=== PATIENT | female | born 1945 | race Caucasian/White ===

== ENCOUNTER 2022-05-03 12:29 | Inpatient (IN) ==
[2022-05-03] MEDS ORDERED: Nitroglycerin 0.4 MG TAB.SUBL SL PRN (18:43)
[2022-05-03] MEDS ORDERED: Ciprofloxacin HCL Soln 5 ML BOTTLE RIGHT EYE SCH (20:00)
[2022-05-03] MEDS: Aspirin Enteric Coated 81 MG Tablet PO SCH (20:37)
[2022-05-03] MEDS: Gabapentin 300 MG CAPSULE PO SCH (20:37)
[2022-05-03] MEDS: QUEtiapine Fumarate 25 MG TABLET PO SCH (20:38)
[2022-05-03] MEDS: Ciprofloxacin HCL Soln 5 ML BOTTLE BOTH EYES SCH (23:14)
[2022-05-03] MEDS: BuPROPion SR (12 HR) 100 MG TABLET PO SCH (23:14)
[2022-05-04] MEDS: Ciprofloxacin HCL Soln 5 ML BOTTLE BOTH EYES SCH ×5 (04:54→19:49)
[2022-05-04] MEDS: *HR* Enoxaparin 40 MG/0.4 ML SYRINGE SQ SCH (05:09)
[2022-05-04 05:48] LABS: Hematocrit 35.6 % (35.3-44.9); Mean Corpuscular HGB Conc 33.7 g/dL (31.6-35.5); Mean Corpuscular Hemoglobin 30.5 pg (28.0-33.3); Mean Corpuscular Volume 90.6 fL (83.0-100.0); Mean Platelet Volume 9.5 fL (9.4-12.4); Platelet Count 186 K/mcL (140-400); Red Blood Count 3.93 M/mcL (3.82-4.97); Red Cell Distribution Width 12.8 % (11.5-14.5); White Blood Count 6.7 K/mcL (4.3-11.1)
[2022-05-04 06:17] LABS: Alanine Aminotransferase 11 Units/L (7-52); Albumin 3.5 g/dL (3.5-5.7); Albumin/Globulin Ratio 1.3 (1.1-2.2); Alkaline Phosphatase 63 Units/L (34-104); Aspartate Amino Transferase 15 Units/L (13-39); BUN/Creatinine Ratio 12 (6-26); Bilirubin,Total 0.5 mg/dL (0.3-1.0); Blood Urea Nitrogen 9 mg/dL (8-23); Calcium 9.3 mg/dL (8.6-10.3); Carbon Dioxide 29 mEq/L (23-29); Chloride 104 mEq/L (98-107); Globulin 2.8 g/dL (2.4-3.5); Glucose 161 mg/dL (70-105); Magnesium 1.4 mg/dL (1.6-2.6); Osmolality,Calculated 292 (280-300); Potassium 3.7 mEq/L (3.5-5.1); Sodium 140 mEq/L (136-145); Total Protein 6.3 g/dL (6.4-8.9); eGFR For African Americans > 60 (> 60); eGFR For Non-African Americans > 60 (> 60)
[2022-05-04] MEDS: GlipiZIDE 5 MG TABLET PO SCH (08:51)
[2022-05-04] MEDS: amLODIPine 5 MG TABLET PO SCH (08:52)
[2022-05-04] MEDS: Aspirin Enteric Coated 81 MG Tablet PO SCH ×2 (08:52→19:48)
[2022-05-04] MEDS: Gabapentin 300 MG CAPSULE PO SCH ×2 (08:52→19:49)
[2022-05-04] MEDS: carvediloL 6.25 MG TABLET PO SCH ×2 (08:52→15:56)
[2022-05-04] MEDS: Ergocalciferol (VIT D2) 50,000 UNIT (1.25MG) CAP PO SCH (08:55)
[2022-05-04] MEDS: BuPROPion SR (12 HR) 100 MG TABLET PO SCH ×2 (09:14→19:48)
[2022-05-04] MEDS: Magnesium Oxide 400 MG TABLET PO SCH ×2 (13:00→19:49)
[2022-05-04] MEDS: *HR* OxyCODONE/APAP 5/325 TABLET PO PRN (15:56)
[2022-05-04] MEDS: QUEtiapine Fumarate 25 MG TABLET PO SCH (19:49)
[2022-05-05] MEDS: *HR* Enoxaparin 40 MG/0.4 ML SYRINGE SQ SCH (03:58)
[2022-05-05] MEDS: Ciprofloxacin HCL Soln 5 ML BOTTLE BOTH EYES SCH ×6 (03:58→20:14)
[2022-05-05] MEDS: Aspirin Enteric Coated 81 MG Tablet PO SCH ×2 (07:16→20:14)
[2022-05-05] MEDS: BuPROPion SR (12 HR) 100 MG TABLET PO SCH ×2 (07:16→20:14)
[2022-05-05] MEDS: GlipiZIDE 5 MG TABLET PO SCH (07:16)
[2022-05-05] MEDS: *HR* OxyCODONE/APAP 5/325 TABLET PO PRN ×2 (07:16→15:16)
[2022-05-05] MEDS: amLODIPine 5 MG TABLET PO SCH (07:16)
[2022-05-05] MEDS: carvediloL 6.25 MG TABLET PO SCH ×2 (07:16→15:25)
[2022-05-05] MEDS: Gabapentin 300 MG CAPSULE PO SCH ×2 (07:16→20:15)
[2022-05-05] MEDS: Magnesium Oxide 400 MG TABLET PO SCH ×2 (07:17→20:15)
[2022-05-05] MEDS: QUEtiapine Fumarate 25 MG TABLET PO SCH (20:14)
[2022-05-06] MEDS: Ciprofloxacin HCL Soln 5 ML BOTTLE BOTH EYES SCH ×6 (03:40→19:48)
[2022-05-06] MEDS: *HR* Enoxaparin 40 MG/0.4 ML SYRINGE SQ SCH (03:48)
[2022-05-06 06:00] LABS: Hematocrit 36.1 % (35.3-44.9); Hemoglobin 12.1 g/dL (11.5-15.4); Mean Corpuscular HGB Conc 33.5 g/dL (31.6-35.5); Mean Corpuscular Hemoglobin 30.5 pg (28.0-33.3); Mean Corpuscular Volume 90.9 fL (83.0-100.0); Mean Platelet Volume 9.3 fL (9.4-12.4); Platelet Count 194 K/mcL (140-400); Red Blood Count 3.97 M/mcL (3.82-4.97); White Blood Count 4.5 K/mcL (4.3-11.1)
[2022-05-06 06:13] LABS: BUN/Creatinine Ratio 17 (6-26); Blood Urea Nitrogen 14 mg/dL (8-23); Calcium 8.8 mg/dL (8.6-10.3); Carbon Dioxide 31 mEq/L (23-29); Chloride 101 mEq/L (98-107); Glucose 205 mg/dL (70-105); Magnesium 1.8 mg/dL (1.6-2.6); Osmolality,Calculated 292 (280-300); Potassium 4.1 mEq/L (3.5-5.1); Sodium 138 mEq/L (136-145)
[2022-05-06] MEDS: BuPROPion SR (12 HR) 100 MG TABLET PO SCH ×2 (07:53→19:50)
[2022-05-06] MEDS: Magnesium Oxide 400 MG TABLET PO SCH ×2 (07:53→19:49)
[2022-05-06] MEDS: Aspirin Enteric Coated 81 MG Tablet PO SCH ×2 (07:53→19:49)
[2022-05-06] MEDS: GlipiZIDE 5 MG TABLET PO SCH (07:54)
[2022-05-06] MEDS: amLODIPine 5 MG TABLET PO SCH (07:54)
[2022-05-06] MEDS: carvediloL 6.25 MG TABLET PO SCH ×2 (07:54→15:12)
[2022-05-06] MEDS: Gabapentin 300 MG CAPSULE PO SCH ×2 (07:54→19:50)
[2022-05-06] MEDS: *HR* OxyCODONE/APAP 5/325 TABLET PO PRN (15:12)
[2022-05-06 15:27] LABS: C-Reactive Protein < 5 mg/L (Less than 10)
[2022-05-06] MEDS: QUEtiapine Fumarate 25 MG TABLET PO SCH (19:49)
[2022-05-06] MEDS: Ibuprofen 400 MG TABLET PO PRN (19:49)
[2022-05-07] MEDS: Ciprofloxacin HCL Soln 5 ML BOTTLE BOTH EYES SCH ×6 (02:51→20:18)
[2022-05-07] MEDS: *HR* Enoxaparin 40 MG/0.4 ML SYRINGE SQ SCH (04:35)
[2022-05-07] MEDS: carvediloL 6.25 MG TABLET PO SCH ×2 (08:02→18:00)
[2022-05-07] MEDS: BuPROPion SR (12 HR) 100 MG TABLET PO SCH ×2 (08:02→20:19)
[2022-05-07] MEDS: GlipiZIDE 5 MG TABLET PO SCH (08:02)
[2022-05-07] MEDS: Aspirin Enteric Coated 81 MG Tablet PO SCH ×2 (08:03→20:19)
[2022-05-07] MEDS: Magnesium Oxide 400 MG TABLET PO SCH ×2 (08:03→20:18)
[2022-05-07] MEDS: amLODIPine 5 MG TABLET PO SCH (08:03)
[2022-05-07] MEDS: Gabapentin 300 MG CAPSULE PO SCH ×2 (08:03→20:20)
[2022-05-07] MEDS: Ibuprofen 400 MG TABLET PO PRN (08:10)
[2022-05-07] MEDS: *HR* OxyCODONE/APAP 5/325 TABLET PO PRN ×2 (15:07→20:18)
[2022-05-07] MEDS: QUEtiapine Fumarate 25 MG TABLET PO SCH (20:20)
[2022-05-08] MEDS: Ciprofloxacin HCL Soln 5 ML BOTTLE BOTH EYES SCH ×7 (00:51→22:54)
[2022-05-08] MEDS: *HR* Enoxaparin 40 MG/0.4 ML SYRINGE SQ SCH (05:36)
[2022-05-08] MEDS: Magnesium Oxide 400 MG TABLET PO SCH ×2 (07:47→19:28)
[2022-05-08] MEDS: BuPROPion SR (12 HR) 100 MG TABLET PO SCH ×2 (07:47→19:28)
[2022-05-08] MEDS: amLODIPine 5 MG TABLET PO SCH (07:48)
[2022-05-08] MEDS: Gabapentin 300 MG CAPSULE PO SCH ×2 (07:48→19:27)
[2022-05-08] MEDS: Aspirin Enteric Coated 81 MG Tablet PO SCH ×2 (07:48→19:28)
[2022-05-08] MEDS: GlipiZIDE 5 MG TABLET PO SCH (07:48)
[2022-05-08] MEDS: carvediloL 6.25 MG TABLET PO SCH ×2 (07:49→15:57)
[2022-05-08] MEDS ORDERED: diazePAM 5 MG TABLET PO PRN (07:57)
[2022-05-08] MEDS: *HR* OxyCODONE/APAP 5/325 TABLET PO PRN ×2 (15:57→19:28)
[2022-05-08] MEDS: QUEtiapine Fumarate 25 MG TABLET PO SCH (19:28)
[2022-05-08] MEDS ORDERED: Insulin DETEMIR 100 UNIT/ML X5UNITS SUBQ SCH (21:00)
[2022-05-09] MEDS: *HR* Enoxaparin 40 MG/0.4 ML SYRINGE SQ SCH (04:46)
[2022-05-09] MEDS: Ciprofloxacin HCL Soln 5 ML BOTTLE BOTH EYES SCH ×6 (04:46→23:57)
[2022-05-09 04:51] LABS: Hematocrit 34.6 % (35.3-44.9); Hemoglobin 11.3 g/dL (11.5-15.4); Mean Corpuscular HGB Conc 32.7 g/dL (31.6-35.5); Mean Corpuscular Hemoglobin 30.2 pg (28.0-33.3); Mean Corpuscular Volume 92.5 fL (83.0-100.0); Mean Platelet Volume 9.4 fL (9.4-12.4); Platelet Count 186 K/mcL (140-400); Red Blood Count 3.74 M/mcL (3.82-4.97); Red Cell Distribution Width 13.1 % (11.5-14.5); White Blood Count 6.3 K/mcL (4.3-11.1)
[2022-05-09 05:03] LABS: Calcium 8.6 mg/dL (8.6-10.3); Magnesium 1.8 mg/dL (1.6-2.6)
[2022-05-09] MEDS ORDERED: Insulin DETEMIR 100 UNIT/ML per UNIT SUBQ ONE (09:00)
[2022-05-09] MEDS: Aspirin Enteric Coated 81 MG Tablet PO SCH ×2 (09:53→21:06)
[2022-05-09] MEDS: *HR* OxyCODONE/APAP 5/325 TABLET PO PRN ×3 (09:53→21:06)
[2022-05-09] MEDS: Gabapentin 300 MG CAPSULE PO SCH ×2 (09:53→21:06)
[2022-05-09] MEDS: GlipiZIDE 5 MG TABLET PO SCH (09:53)
[2022-05-09] MEDS: Magnesium Oxide 400 MG TABLET PO SCH ×2 (09:53→21:06)
[2022-05-09] MEDS: carvediloL 6.25 MG TABLET PO SCH ×2 (09:53→16:59)
[2022-05-09] MEDS: amLODIPine 5 MG TABLET PO SCH (09:53)
[2022-05-09] MEDS: BuPROPion SR (12 HR) 100 MG TABLET PO SCH ×2 (09:55→21:12)
[2022-05-09 12:35] LABS: Estimated Average Glucose 160 mg/dl; Hemoglobin A1C 7.2 %
[2022-05-09] MEDS: QUEtiapine Fumarate 25 MG TABLET PO SCH (21:06)
[2022-05-09] MEDS: Insulin DETEMIR 100 UNIT/ML X5UNITS SUBQ SCH (21:06)
[2022-05-10] MEDS: Ciprofloxacin HCL Soln 5 ML BOTTLE BOTH EYES SCH ×5 (06:02→20:07)
[2022-05-10] MEDS: carvediloL 6.25 MG TABLET PO SCH ×2 (06:08→16:13)
[2022-05-10] MEDS: *HR* Enoxaparin 40 MG/0.4 ML SYRINGE SQ SCH (06:08)
[2022-05-10] MEDS: BuPROPion SR (12 HR) 100 MG TABLET PO SCH ×2 (08:34→20:06)
[2022-05-10] MEDS: Magnesium Oxide 400 MG TABLET PO SCH ×2 (08:34→20:07)
[2022-05-10] MEDS: GlipiZIDE 5 MG TABLET PO SCH (08:34)
[2022-05-10] MEDS: Gabapentin 300 MG CAPSULE PO SCH ×2 (08:34→20:06)
[2022-05-10] MEDS: amLODIPine 5 MG TABLET PO SCH (08:34)
[2022-05-10] MEDS: Aspirin Enteric Coated 81 MG Tablet PO SCH ×2 (08:34→20:06)
[2022-05-10] MEDS: Insulin DETEMIR 100 UNIT/ML X5UNITS SUBQ SCH ×2 (08:38→20:05)
[2022-05-10] MEDS: *HR* OxyCODONE/APAP 5/325 TABLET PO PRN ×2 (12:53→18:05)
[2022-05-10] MEDS: QUEtiapine Fumarate 25 MG TABLET PO SCH (20:07)
[2022-05-11] MEDS: Ciprofloxacin HCL Soln 5 ML BOTTLE BOTH EYES SCH ×6 (00:13→21:04)
[2022-05-11] MEDS: *HR* Enoxaparin 40 MG/0.4 ML SYRINGE SQ SCH (05:29)
[2022-05-11] MEDS: Aspirin Enteric Coated 81 MG Tablet PO SCH ×2 (07:34→20:19)
[2022-05-11] MEDS: Gabapentin 300 MG CAPSULE PO SCH ×2 (07:34→20:18)
[2022-05-11] MEDS: amLODIPine 5 MG TABLET PO SCH (07:34)
[2022-05-11] MEDS: BuPROPion SR (12 HR) 100 MG TABLET PO SCH ×2 (07:34→20:18)
[2022-05-11] MEDS: Magnesium Oxide 400 MG TABLET PO SCH ×2 (07:34→20:19)
[2022-05-11] MEDS: carvediloL 6.25 MG TABLET PO SCH ×2 (07:34→16:40)
[2022-05-11] MEDS: *HR* OxyCODONE/APAP 5/325 TABLET PO PRN ×2 (07:35→16:57)
[2022-05-11] MEDS: GlipiZIDE 5 MG TABLET PO SCH (07:36)
[2022-05-11] MEDS: Insulin DETEMIR 100 UNIT/ML X5UNITS SUBQ SCH ×2 (07:48→20:20)
[2022-05-11] MEDS: Ergocalciferol (VIT D2) 50,000 UNIT (1.25MG) CAP PO SCH (19:37)
[2022-05-11] MEDS: QUEtiapine Fumarate 25 MG TABLET PO SCH (20:19)
[2022-05-12] MEDS: Ciprofloxacin HCL Soln 5 ML BOTTLE BOTH EYES SCH ×2 (05:16→08:33)
[2022-05-12] MEDS: *HR* Enoxaparin 40 MG/0.4 ML SYRINGE SQ SCH (05:16)
[2022-05-12 07:27] VITALS: BP 100/63; PULSE 73; RESP 14; TEMP 98.3; O2SAT 98
[2022-05-12] MEDS: BuPROPion SR (12 HR) 100 MG TABLET PO SCH (08:33)
[2022-05-12] MEDS: Magnesium Oxide 400 MG TABLET PO SCH (08:34)
[2022-05-12] MEDS: Aspirin Enteric Coated 81 MG Tablet PO SCH (08:34)
[2022-05-12] MEDS: Gabapentin 300 MG CAPSULE PO SCH (08:34)
[2022-05-12] MEDS: GlipiZIDE 5 MG TABLET PO SCH (08:34)
[2022-05-12] MEDS: amLODIPine 5 MG TABLET PO SCH (08:34)
[2022-05-12] MEDS: carvediloL 6.25 MG TABLET PO SCH (08:35)
[2022-05-12] MEDS: Insulin DETEMIR 100 UNIT/ML X5UNITS SUBQ SCH (08:35)
[2022-05-12] MEDS: *HR* OxyCODONE/APAP 5/325 TABLET PO PRN (08:35)
== END 2022-05-12 13:35 | disposition home health service (06) | DRG 948 ==
LOC: INPGRE 16:46
PROVIDERS: ADMIT Family Medicine; ATTEND Family Medicine